=== PATIENT | female | born 1940 | race Two or more races ===

== ENCOUNTER 2024-08-11 08:37 | Inpatient (IN) | payer SELFPAY ==
[2024-08-11] VITALS (21 sets, daily range): BP systolic 134–175; BP diastolic 78–104; TEMP 98.6; O2SAT 94–98
[~2024-08-11] VITALS: Ht 160 cm; Wt 66.2 kg
[2024-08-11] MEDS ORDERED: FUROSEMIDE 40 MG/4 ML VIAL ONE (08:49)
[2024-08-11] MEDS ORDERED: NITROGLYCERIN 0.4 MG/TAB BOTTLE ONE (08:49)
[2024-08-11] MEDS ORDERED: NTG 50 MG/D5W250 ML BOTTL 250 ML IV ONE ×3 (08:49→16:27)
[2024-08-11 08:57] LABS: BASOPHILS % (AUTO) 0.3 % (0.0-2.0); EOSINOPHILS # (AUTO) 0.1 K/uL (0.0-0.7); EOSINOPHILS % (AUTO) 0.8 % (0.0-6.0); HEMATOCRIT 43 % (33-45); HEMOGLOBIN 13.3 g/dL (11.5-14.8); LYMPHOCYTES # (AUTO) 0.9 K/uL (0.8-4.8); LYMPHOCYTES % (AUTO) 9.8 % (20.0-44.0); MEAN CORPUSCULAR HEMOGLOBIN 25 PG (26.0-33.0); MEAN CORPUSCULAR HGB CONC 31 g/dl (31.0-36.0); MEAN CORPUSCULAR VOLUME 83 fL (82-100); MONOCYTES # (AUTO) 0.6 K/uL (0.1-1.30); MONOCYTES % (AUTO) 6.1 % (2.0-12.0); NEUTROPHILS # (AUTO) 7.6 K/uL (1.8-8.9); PLATELET COUNT (AUTO) 247 K/uL (150-450); RED BLOOD CELL COUNT(AUTO) 5.24 MIL/uL (4.0-5.2); RED CELL DISTRIBUTION WIDTH 17.5 % (11.5-15.0); WHITE BLOOD COUNT (AUTO) 9.2 K/uL (4.3-11.0)
[2024-08-11] MEDS: NITROGLYCERIN 0.4 MG/TAB BOTTLE SL ONE ×2 (09:00→10:12)
[2024-08-11] MEDS: FUROSEMIDE 40 MG/4 ML VIAL IV ONE (09:00)
[2024-08-11 09:11] LABS: INR 0.95 (0.91-1.10); PARTIAL THROMBOPLASTIN TIME 23.5 SEC (24.3-34.3); PROTHROMBIN TIME 10.1 SECS (9.2-11.1)
[2024-08-11 09:17] LABS: CARBON DIOXIDE 21 mmol/L (21-32); CHLORIDE 103 mmol/L (98-107); GLUCOSE 219 mg/dL (74-106); POTASSIUM 3.4 mmol/L (3.5-5.1); SODIUM SERUM 137 mmol/L (136-145); UREA NITROGEN, BLOOD 16 mg/dL (7-18)
[2024-08-11 09:21] LABS: ALANINE AMINOTRANSFERASE 9 U/L (12-78); ALBUMIN 3.2 g/dL (3.4-5.0); ALKALINE PHOSPHATASE 145 U/L (46-116); ASPARTATE AMINOTRANSFERASE 20 U/L (15-37); BILIRUBIN,DIRECT 0.1 mg/dL (0.0-0.2); BILIRUBIN,TOTAL 0.2 mg/dL (0.2-1.0); NT-PRO BNP 2463 pg/mL (0-125); TOTAL PROTEIN, SERUM 8.1 g/dL (6.4-8.2)
[2024-08-11] MEDS ORDERED: LOSARTAN POTASSIUM 25 MG TABLET ONE (09:23)
[2024-08-11] MEDS: LOSARTAN POTASSIUM 25 MG TABLET PO ONE (09:26)
[2024-08-11] MEDS ORDERED: POTASSIUM CHLORIDE 20 MEQ TAB.PRT.SR PO ONE (10:05)
[2024-08-11] MEDS: POTASSIUM CHLORIDE 20 MEQ TAB.PRT.SR PO ONE (10:12)
[2024-08-11] MEDS: NTG 50 MG/D5W250 ML BOTTL 250 ML IV PRN ×2 (12:00→19:49)
[2024-08-11] MEDS ORDERED: ASPIRIN 325 MG TABLET ONE (12:56)
[2024-08-11] MEDS: ASPIRIN 325 MG TABLET PO ONE (13:05)
[2024-08-11] MEDS ORDERED: ENOXAPARIN SODIUM 60 MG/0.6 ML DISP.SYRIN SQ ONE (13:59)
[2024-08-11] MEDS: ENOXAPARIN SODIUM 60 MG/0.6 ML DISP.SYRIN SQ ONE (14:02)
[2024-08-11] MEDS ORDERED: MORPHINE SULFATE INJ 2 MG/ML DISP.SYRIN IV PRN (14:30)
[2024-08-11] MEDS ORDERED: ONDANSETRON HCL/PF 4 MG/2 ML VIAL IVP PRN (14:30)
[2024-08-11] MEDS ORDERED: Z GUARD REMEDY 4 OZ OINT TP PRN (14:30)
[2024-08-11] MEDS ORDERED: MAG HYDROX/AL HYDROX/SIMETH 30 ML UDC PO PRN (14:30)
[2024-08-11] MEDS ORDERED: MAGNESIUM HYDROXIDE 30 ML UDC PO PRN (14:30)
[2024-08-11] MEDS ORDERED: TEMAZEPAM 15 MG CAPSULE PO PRN (14:30)
[2024-08-11] MEDS ORDERED: DEXTROSE 50%-WATER 50 ML DISP.SYRIN IV PRN (14:30)
[2024-08-11] MEDS ORDERED: ASPI-1420 PO (15:27)
[2024-08-11] MEDS: BLOOD SUGAR DIAGNOSTIC 1 EACH STRIP IN SCH (17:47)
[2024-08-11] MEDS: HYDROCODONE/APAP 5/325MG TABLET PO PRN (22:11)
[2024-08-11] MEDS: INSULIN REGULAR, HUMAN 100 UNIT/ML 3 ML VIAL SQ PRN (22:17)
[2024-08-12] VITALS (62 sets, daily range): BP systolic 106–173; BP diastolic 71–104; TEMP 98–99.6; O2SAT 93–99
[2024-08-12] MEDS ORDERED: NTG 50 MG/D5W250 ML BOTTL 250 ML IV ONE (00:42)
[2024-08-12] MEDS: ENOXAPARIN SODIUM 40 MG/0.4 ML DISP.SYRIN SQ SCH (02:01)
[2024-08-12 04:59] LABS: BASOPHILS # (AUTO) 0.1 K/uL (0.0-0.2); BASOPHILS % (AUTO) 0.9 % (0.0-2.0); EOSINOPHILS # (AUTO) 0.1 K/uL (0.0-0.7); EOSINOPHILS % (AUTO) 0.8 % (0.0-6.0); HEMATOCRIT 34 % (33-45); HEMOGLOBIN 11.3 g/dL (11.5-14.8); LYMPHOCYTES % (AUTO) 16.4 % (20.0-44.0); MEAN CORPUSCULAR HEMOGLOBIN 26 PG (26.0-33.0); MEAN CORPUSCULAR HGB CONC 33 g/dl (31.0-36.0); MEAN CORPUSCULAR VOLUME 78 fL (82-100); MONOCYTES # (AUTO) 0.6 K/uL (0.1-1.30); MONOCYTES % (AUTO) 9.1 % (2.0-12.0); NEUTROPHILS # (AUTO) 4.6 K/uL (1.8-8.9); NEUTROPHILS % (AUTO) 72.8 % (43.0-81.0); PLATELET COUNT (AUTO) 241 K/uL (150-450); RED BLOOD CELL COUNT(AUTO) 4.38 MIL/uL (4.0-5.2); RED CELL DISTRIBUTION WIDTH 16.6 % (11.5-15.0); WHITE BLOOD COUNT (AUTO) 6.4 K/uL (4.3-11.0)
[2024-08-12 05:09] LABS: CALCIUM, SERUM 8.9 mg/dL (8.5-10.1); CREATININE 1.1 mg/dL (0.6-1.3); PHOSPHORUS 3.4 mg/dL (2.5-4.9); POTASSIUM 4.1 mmol/L (3.5-5.1)
[2024-08-12 06:24] LABS: THYROID STIMULATING HORMONE 3.1 uIU/mL (0.358-3.74)
[2024-08-12] MEDS: POTASSIUM CHLORIDE 20 MEQ TAB.PRT.SR PO SCH (08:17)
[2024-08-12] MEDS: ASPIRIN 81 MG TAB.CHEW PO SCH (08:17)
[2024-08-12] MEDS: hydrALAZINE HCL 50 MG TABLET PO SCH (08:17)
[2024-08-12] MEDS: ATORVASTATIN 40 MG TABLET PO SCH (08:17)
[2024-08-12] MEDS: PANTOPRAZOLE 40 MG TABLET.DR PO SCH (08:17)
[2024-08-12] MEDS: VALSARTAN 80 MG TABLET PO SCH (08:18)
[2024-08-12] MEDS: FUROSEMIDE 40 MG/4 ML VIAL IV SCH (08:18)
[2024-08-12] MEDS ORDERED: FUROSEMIDE 40 MG/4 ML VIAL IV SCH (09:00)
[2024-08-12] MEDS: ISOSORBIDE DINITRATE (20MG) 20 MG TABLET PO SCH (11:20)
[2024-08-12] MEDS: INSULIN GLARGINE, 100 UNIT/ML CARTRIDGE SQ SCH (21:51)
[2024-08-13] VITALS (23 sets, daily range): BP systolic 114–162; BP diastolic 63–89; TEMP 97.9–99.2; O2SAT 94–100
[2024-08-13 04:08] LABS: BASOPHILS # (AUTO) 0.1 K/uL (0.0-0.2); BASOPHILS % (AUTO) 0.9 % (0.0-2.0); EOSINOPHILS # (AUTO) 0.1 K/uL (0.0-0.7); EOSINOPHILS % (AUTO) 1.2 % (0.0-6.0); HEMATOCRIT 32 % (33-45); HEMOGLOBIN 11.2 g/dL (11.5-14.8); LYMPHOCYTES # (AUTO) 1.6 K/uL (0.8-4.8); LYMPHOCYTES % (AUTO) 27.3 % (20.0-44.0); MEAN CORPUSCULAR HEMOGLOBIN 27 PG (26.0-33.0); MEAN CORPUSCULAR HGB CONC 35 g/dl (31.0-36.0); MEAN CORPUSCULAR VOLUME 77 fL (82-100); MONOCYTES # (AUTO) 0.6 K/uL (0.1-1.30); MONOCYTES % (AUTO) 10.7 % (2.0-12.0); NEUTROPHILS # (AUTO) 3.5 K/uL (1.8-8.9); NEUTROPHILS % (AUTO) 59.9 % (43.0-81.0); PLATELET COUNT (AUTO) 245 K/uL (150-450); RED BLOOD CELL COUNT(AUTO) 4.17 MIL/uL (4.0-5.2); RED CELL DISTRIBUTION WIDTH 16.8 % (11.5-15.0); WHITE BLOOD COUNT (AUTO) 5.9 K/uL (4.3-11.0)
[2024-08-13 04:10] LABS: ALBUMIN 2.9 g/dL (3.4-5.0); BILIRUBIN,TOTAL 0.6 mg/dL (0.2-1.0); CALCIUM, SERUM 9.1 mg/dL (8.5-10.1); CREATININE 1.3 mg/dL (0.6-1.3); MAGNESIUM 2.1 mg/dL (1.8-2.4); PHOSPHORUS 4.1 mg/dL (2.5-4.9); POTASSIUM 3.5 mmol/L (3.5-5.1); TOTAL PROTEIN, SERUM 7.2 g/dL (6.4-8.2)
[2024-08-13] MEDS: METOPROLOL TARTRATE 50 MG TABLET PO SCH (11:34)
[2024-08-13] MEDS: ENOXAPARIN SODIUM 60 MG/0.6 ML DISP.SYRIN SQ SCH (12:42)
[2024-08-13] MEDS ORDERED: CT SWABBABLE VALVE TRANS SET 1 EA INFUS.SET MC ONE (15:32)
[2024-08-13] MEDS ORDERED: IOHEXOL-350 100 ML VIAL IV ONE ×2 (15:32→16:02)
[2024-08-13] MEDS ORDERED: IV NS 0.9% 250 ML IV ONE (15:32)
[2024-08-14] VITALS: BP 133/83; TEMP 98.4; O2SAT 99
[2024-08-14 04:00] VITALS: BP 121/80; TEMP 98.3; O2SAT 95
[2024-08-14 07:23] LABS: APPEARANCE,URINE CLEAR (CLEAR); BILIRUBIN,URINE NEGATIVE (NEGATIVE); BLOOD, URINE 3+ Ery/uL (NEGATIVE); COLOR,URINE YELLOW (YELLOW); KETONES,URINE NEGATIVE (NEGATIVE); LEUKOCYTE ESTERASE ,URINE TRACE (NEGATIVE); NITRITE, URINE NEGATIVE (NEGATIVE); PH,URINE 5.5 (5.0-8.0); PROTEIN,URINE TRACE mg/dl (NEGATIVE); UGLUCOSE NEGATIVE (NEGATIVE); UROBILINOGEN,URINE 0.2 EU/dL (0.2)
[2024-08-14 08:00] VITALS: BP 143/74; TEMP 98; O2SAT 98
[2024-08-14 08:00] LABS: RBC,URINE 81-100 /HPF (0-2)
[2024-08-14 08:01] LABS: ADD URINE CULTURE YES; BACTERIA,URINE Few /HPF (None Seen)
[2024-08-14] MEDS: IV NS 0.9% 1,000 ML IV PRN (08:45)
[2024-08-14 10:04] LABS: BASOPHILS % (AUTO) 0.7 % (0.0-2.0); EOSINOPHILS # (AUTO) 0.1 K/uL (0.0-0.7); EOSINOPHILS % (AUTO) 2.5 % (0.0-6.0); HEMATOCRIT 36 % (33-45); HEMOGLOBIN 11.5 g/dL (11.5-14.8); LYMPHOCYTES % (AUTO) 18.6 % (20.0-44.0); MEAN CORPUSCULAR HEMOGLOBIN 25 PG (26.0-33.0); MEAN CORPUSCULAR HGB CONC 32 g/dl (31.0-36.0); MEAN CORPUSCULAR VOLUME 79 fL (82-100); MONOCYTES # (AUTO) 0.4 K/uL (0.1-1.30); MONOCYTES % (AUTO) 7.9 % (2.0-12.0); NEUTROPHILS # (AUTO) 3.7 K/uL (1.8-8.9); NEUTROPHILS % (AUTO) 70.3 % (43.0-81.0); PLATELET COUNT (AUTO) 296 K/uL (150-450); RED BLOOD CELL COUNT(AUTO) 4.56 MIL/uL (4.0-5.2); RED CELL DISTRIBUTION WIDTH 16.7 % (11.5-15.0); WHITE BLOOD COUNT (AUTO) 5.3 K/uL (4.3-11.0)
[2024-08-14 10:33] LABS: ALANINE AMINOTRANSFERASE 15 U/L (12-78); ALKALINE PHOSPHATASE 97 U/L (46-116); ASPARTATE AMINOTRANSFERASE 18 U/L (15-37); BILIRUBIN,TOTAL 0.4 mg/dL (0.2-1.0); CALCIUM, SERUM 8.9 mg/dL (8.5-10.1); CARBON DIOXIDE 27 mmol/L (21-32); CHLORIDE 100 mmol/L (98-107); CREATININE 1.5 mg/dL (0.6-1.3); GLUCOSE 193 mg/dL (74-106); MAGNESIUM 1.8 mg/dL (1.8-2.4); POTASSIUM 3.4 mmol/L (3.5-5.1); SODIUM SERUM 133 mmol/L (136-145); TOTAL PROTEIN, SERUM 6.9 g/dL (6.4-8.2); UREA NITROGEN, BLOOD 31 mg/dL (7-18)
[2024-08-14 11:14] LABS: ALBUMIN < 3.4 g/dL (3.4-5.0)
[2024-08-14 12:00] VITALS: BP 115/63; TEMP 97.9; O2SAT 98
[2024-08-14 12:24] LABS: CREATININE, URINE 185.6 MG/DL (30.0-125.0); URINE TOTAL PROTEIN 36.8 mg/dL (0-11.9)
[2024-08-14 13:32] LABS: EOSINOPHIL,URINE None Seen
[2024-08-14 16:00] VITALS: BP 116/59; TEMP 98; O2SAT 96
[2024-08-14] MEDS: POTASSIUM CHLORIDE 20 MEQ TAB.PRT.SR PO ONE (18:41)
[2024-08-14 20:00] VITALS: BP 117/58; TEMP 98.2; O2SAT 96
[2024-08-15] VITALS: BP 135/72; TEMP 98.2; O2SAT 97
[2024-08-15 04:00] VITALS: BP 139/76; TEMP 98.1; O2SAT 95
[2024-08-15 08:10] VITALS: BP 150/71; TEMP 98.4; O2SAT 97
[2024-08-15 09:47] LABS: BASOPHILS % (AUTO) 0.6 % (0.0-2.0); EOSINOPHILS # (AUTO) 0.2 K/uL (0.0-0.7); EOSINOPHILS % (AUTO) 3.6 % (0.0-6.0); HEMATOCRIT 34 % (33-45); LYMPHOCYTES % (AUTO) 21.2 % (20.0-44.0); MEAN CORPUSCULAR HEMOGLOBIN 26 PG (26.0-33.0); MEAN CORPUSCULAR HGB CONC 33 g/dl (31.0-36.0); MEAN CORPUSCULAR VOLUME 79 fL (82-100); MONOCYTES # (AUTO) 0.5 K/uL (0.1-1.30); MONOCYTES % (AUTO) 9.6 % (2.0-12.0); PLATELET COUNT (AUTO) 255 K/uL (150-450); RED BLOOD CELL COUNT(AUTO) 4.25 MIL/uL (4.0-5.2); RED CELL DISTRIBUTION WIDTH 16.6 % (11.5-15.0); WHITE BLOOD COUNT (AUTO) 4.7 K/uL (4.3-11.0)
[2024-08-15 12:00] VITALS: BP 144/72; TEMP 98.2; O2SAT 98
[2024-08-15 14:24] LABS: ALBUMIN 2.8 g/dL (3.4-5.0); BILIRUBIN,TOTAL 0.4 mg/dL (0.2-1.0); CALCIUM, SERUM 9.2 mg/dL (8.5-10.1); CREATININE 1.1 mg/dL (0.6-1.3); MAGNESIUM 2.4 mg/dL (1.8-2.4); PHOSPHORUS 3.6 mg/dL (2.5-4.9); POTASSIUM 3.5 mmol/L (3.5-5.1); TOTAL PROTEIN, SERUM 6.9 g/dL (6.4-8.2)
[2024-08-15 16:15] VITALS: BP 148/79; TEMP 98.1; O2SAT 97
[2024-08-15] MEDS: ACETAMINOPHEN 325 MG TABLET PO PRN (17:20)
[2024-08-15 20:00] VITALS: BP 141/78; TEMP 98.2; O2SAT 98
[2024-08-16] VITALS (23 sets, daily range): BP systolic 103–188; BP diastolic 57–101; TEMP 97.5–98.7; O2SAT 96–100
[2024-08-16] MEDS ORDERED: IV NS 0.9% 1,000 ML ONE (06:39)
[2024-08-16] MEDS ORDERED: IV SET PRIMARY PUMP SET 1 EA INFUS.SET MC ONE ×2 (06:39→09:08)
[2024-08-16 06:57] LABS: BASOPHILS # (AUTO) 0.1 K/uL (0.0-0.2); BASOPHILS % (AUTO) 2.6 % (0.0-2.0); EOSINOPHILS # (AUTO) 0.1 K/uL (0.0-0.7); EOSINOPHILS % (AUTO) 3.7 % (0.0-6.0); HEMATOCRIT 34 % (33-45); HEMOGLOBIN 11.3 g/dL (11.5-14.8); LYMPHOCYTES # (AUTO) 0.6 K/uL (0.8-4.8); LYMPHOCYTES % (AUTO) 15.4 % (20.0-44.0); MEAN CORPUSCULAR HEMOGLOBIN 26 PG (26.0-33.0); MEAN CORPUSCULAR HGB CONC 33 g/dl (31.0-36.0); MEAN CORPUSCULAR VOLUME 79 fL (82-100); MONOCYTES # (AUTO) 0.4 K/uL (0.1-1.30); MONOCYTES % (AUTO) 9.3 % (2.0-12.0); NEUTROPHILS # (AUTO) 2.7 K/uL (1.8-8.9); PLATELET COUNT (AUTO) 260 K/uL (150-450); RED BLOOD CELL COUNT(AUTO) 4.38 MIL/uL (4.0-5.2); RED CELL DISTRIBUTION WIDTH 16.7 % (11.5-15.0); WHITE BLOOD COUNT (AUTO) 3.9 K/uL (4.3-11.0)
[2024-08-16 07:15] LABS: INR 0.97 (0.91-1.10); PARTIAL THROMBOPLASTIN TIME 27.1 SEC (24.3-34.3); PROTHROMBIN TIME 10.3 SECS (9.2-11.1)
[2024-08-16 07:29] LABS: CALCIUM, SERUM 8.7 mg/dL (8.5-10.1); CREATININE 0.9 mg/dL (0.6-1.3); POTASSIUM 3.3 mmol/L (3.5-5.1)
[2024-08-16] MEDS ORDERED: IODIXANOL 150 ML IV ONE ×2 (08:03→09:24)
[2024-08-16] MEDS ORDERED: LIDOCAINE HCL/MPF 1% 30 ML VIAL IJ ONE (08:03)
[2024-08-16] MEDS ORDERED: NITROGLYCERIN IN 5 % DEXTROSE 250 ML IV ONE (08:03)
[2024-08-16] MEDS ORDERED: FENTANYL PF 100MCG/2ML AMPUL ONE (08:52)
[2024-08-16] MEDS ORDERED: MIDAZOLAM HCL 2 MG/2ML VIAL ONE (08:52)
[2024-08-16] MEDS ORDERED: HEPARIN SODIUM, PORCINE 5000 UNITS/1 ML VIAL ONE (09:05)
[2024-08-16] MEDS ORDERED: IODIXANOL 320MG/ML 50 ML IV ONE (09:06)
[2024-08-16] MEDS ORDERED: NOREPINEPHRINE 8MG/250ML RTU 250 ML IV ONE (09:08)
[2024-08-16] MEDS ORDERED: EPINEPHRINE (1:10,000) SYRINGE 1 MG/10 ML DISP.SYRIN ONE (09:11)
[2024-08-16] MEDS ORDERED: DOPamine 400MG/D5W 250ML RTU 250 ML ONE (09:19)
[2024-08-16] MEDS ORDERED: IODIXANOL 320MG/ML 100 ML IV ONE (09:39)
[2024-08-16] MEDS ORDERED: HEPARIN SODIUM, PORCINE 1,000 UNIT/ML VIAL ONE (09:41)
[2024-08-16] MEDS ORDERED: TICAGRELOR 90 MG TABLET ONE (09:45)
[2024-08-16] MEDS: POTASSIUM CL. PREMIX PERIPHER. 50 ML IV SCH (11:31)
[2024-08-16 13:16] LABS: ANISOCYTOSIS 1+; LYMPHOCYTES % (MANUAL) 9 % (16-48); MONOCYTES % (MANUAL) 3 % (0-11.0); NEUTROPHILS % (MANUAL) 88 (42-76); OVALOCYTES 1+; PLATELET ESTIMATE ADEQUATE
[2024-08-16] MEDS: TICAGRELOR 90 MG TABLET PO SCH (17:20)
[2024-08-17] VITALS (13 sets, daily range): BP systolic 114–144; BP diastolic 61–91; TEMP 97.6–98.8; O2SAT 94–100
[2024-08-17] MEDS: POTASSIUM CHLORIDE 20 MEQ TAB.PRT.SR PO ONE (10:12)
== END 2024-08-17 18:21 | disposition home or self-care (01) | DRG 321 ==
LOC: ER 08:37 → ICU 18:00 → TELE1 08-13 13:50 → ICU 08-16 10:50 → TELE1 08-17 11:06
PROVIDERS: ADMIT Nurse Practitioner Acute Care; ATTEND Nurse Practitioner Acute Care
PROC: 5A09357 Assistance with Respiratory Ventilation, Less than 24 Consecutive Hours, Continuous Positive Airway Pressure (ICD-10-PCS; principal; 2024-08-11)
PROC: 027034Z Dilation of Coronary Artery, One Artery with Drug-eluting Intraluminal Device, Percutaneous Approach (ICD-10-PCS; 2024-08-16)
PROC: 4A023N7 Measurement of Cardiac Sampling and Pressure, Left Heart, Percutaneous Approach (ICD-10-PCS; 2024-08-16)
PROC: B211YZZ Fluoroscopy of Multiple Coronary Arteries using Other Contrast (ICD-10-PCS; 2024-08-16)
PROC: B34HZZZ Ultrasonography of Right Upper Extremity Arteries (ICD-10-PCS; 2024-08-16)
PROC: B41FYZZ Fluoroscopy of Right Lower Extremity Arteries using Other Contrast (ICD-10-PCS; 2024-08-16)
PROC: 5A12012 Performance of Cardiac Output, Single, Manual (ICD-10-PCS; 2024-08-16)
DX: T82.855A Stenosis of coronary artery stent, initial encounter (principal); I21.4 Non-ST elevation (NSTEMI) myocardial infarction; I50.33 Acute on chronic diastolic (congestive) heart failure; J96.01 Acute respiratory failure with hypoxia; N17.0 Acute kidney failure with tubular necrosis; I13.0 Hypertensive heart and chronic kidney disease with heart failure and stage 1 through stage 4 chronic kidney disease, or unspecified chronic kidney disease; E87.1 Hypo-osmolality and hyponatremia; I16.0 Hypertensive urgency; N18.9 Chronic kidney disease, unspecified; D64.9 Anemia, unspecified; E11.22 Type 2 diabetes mellitus with diabetic chronic kidney disease; E78.5 Hyperlipidemia, unspecified; F32.A Depression, unspecified; I25.10 Atherosclerotic heart disease of native coronary artery without angina pectoris; E83.9 Disorder of mineral metabolism, unspecified; Z79.84 Long term (current) use of oral hypoglycemic drugs; E11.65 Type 2 diabetes mellitus with hyperglycemia; E87.6 Hypokalemia; Y83.1 Surgical operation with implant of artificial internal device as the cause of abnormal reaction of the patient, or of later complication, without mention of misadventure at the time of the procedure; Y71.8 Miscellaneous cardiovascular devices associated with adverse incidents, not elsewhere classified; Y92.009 Unspecified place in unspecified non-institutional (private) residence as the place of occurrence of the external cause
CPT/HCPCS: 36415; 71045-TC; 75574; 80048-TC; 80053-TC; 80061-TC; 80076-TC; 81001; 82570-TC; 82962-TC; 83735-TC; 83880; 84100-TC; 84300-TC; 84443-TC; 84484-TC; 85025-TC; 85347; 85610-TC; 85730-TC; 86850-TC; 87081-TC; 87086-TC; 93307-TC; A4223; A6403; C1725; C1769; C1887; C1894; C9600; G0269; G0378; G0500; J0171; J1265; J1644; J1650; J1815; J1938; J2250; J3010; J3480; J3490; J7030; J7050; Q9967